=== PATIENT | female | born 1975 | race Caucasian/White ===

== ENCOUNTER → 2018-08-04 13:45 | Outpatient (CLI) | payer OTHER, SELFPAY ==
--- NOTE | 2018-08-04 | DI.MRI.S_ITS ---
PROCEDURE: MR KNEE LT WO CON INDICATIONS: KNEE PAIN - left TECHNIQUE: Noncontrast sagittal PD fast spin echo and T2 fast spin echo with fat saturation, sagittal 3-D FLASH with fat saturation; coronal T1 spin echo and PD fast spin echo with fat saturation, and axial PD fast spin echo with fat saturation through the knee. COMPARISON: [facility], MR, KNEE WITHOUT CONTRAST, 03/21/2016, 15:10. FINDINGS: Image quality: Excellent. Menisci: The medial and lateral menisci demonstrate normal morphology and internal signal. The meniscal root ligaments appear intact. Cruciate ligaments: The anterior and posterior cruciate ligaments appear intact. Medial structures: The medial collateral ligament appears intact. The posterior oblique ligament, semimembranosus tendon insertions, oblique popliteal ligament, and meniscocapsular junction appear intact. Visualized portions of the pes anserinus tendons appear normal. No abnormal bursal fluid. Lateral structures: The lateral collateral ligament, long and short heads of the biceps femoris tendon appear intact. The popliteus tendon appears normal; the popliteofibular ligament appears intact. The posterosuperior and anteroinferior popliteomeniscal fascicles appear intact. The arcuate and fabellofibular ligaments appear intact, on either side of the lateral inferior geniculate artery. Iliotibial band appears normal. Anterior structures: The quadriceps and patellar tendons appear intact. Patellar alignment is normal. No femoral trochlear dysplasia or ventral trochlear prominence. No edema in the infrapatellar fat pad. Bones and cartilage: There is [id number] tricompartmental osteoarthritis multiple prominent in patellofemoral compartment with joint space narrowing, thinning of articulating cartilage and marginal osteophyte formation. Chondromalacia patella involving the lateral facet of patella cartilage is seen with suggestion of small osteochondral lesions involving lateral aspect of posterior patella. No fracture or dislocation. Joint space: There is small amount of joint fluid. No gross loose body. No Duron's cyst. Normal appearing synovial plicae are incidentally noted. IMPRESSION: 1. Mild to moderate tricompartmental osteoarthritis more prominently involving lateral portion of the patellofemoral compartment as described above. Small amount of joint fluid. No gross loose body. No fracture or dislocation. 2. No evidence of focal meniscal tear. 3. Cruciate ligaments are intact. Dictated by: Dirk Mc M.D. on 08/04/2018 at 16:30 Approved by: Dirk Mc M.D. on 08/04/2018 at 16:35
--- NOTE | 2018-08-04 | DI.MRI.S_ITS ---
PROCEDURE: MR CERVICAL SPINE WO CON INDICATIONS: BACK PAIN TECHNIQUE: Noncontrast sagittal T1 spin echo and T2 fast spin echo, sagittal STIR, foraminal oblique sagittal T2 fast spin echo, and axial gradient echo or T2 fast spin echo through the cervical spine. COMPARISON: None. FINDINGS: Image quality: Diagnostic, with note made of motion artifact. Alignment and Curvature: There is straightening of the normal cervical lordosis. No focal AP alignment abnormality is seen. Bone Marrow: Marrow demonstrates normal overall signal. Spinal Cord: Visualized spinal cord has normal size and signal. No cerebellar tonsillar herniation. Paraspinous Soft Tissues: No paravertebral masses. Prevertebral soft tissues are normal in thickness. C2-C3: Normal appearance. C3-C4: Normal appearance. C4-C5: The disc height is well-preserved. Loss of disc signal is seen at this level. A mild degree of generalized disc osteophyte complex is seen. There is mild right-sided and no left-sided neural foraminal narrowing seen. No significant central canal narrowing is seen. C5-C6: Mild loss of disc height is seen. Loss of disc signal is seen. Mild to moderate disc osteophyte complex is seen. There is mild right-sided and mild to moderate left-sided neural foraminal narrowing seen. Moderate central canal narrowing is seen, with minimal associated mass effect upon the ventral spinal cord. C6-C7: Moderate loss of disc height is seen. Loss of disc signal is seen. Moderate to prominent disc osteophyte complex is seen. There is a superimposed central disc osteophyte protrusion. Mild facet joint hypertrophy is seen. There is moderate to severe bilateral neural foraminal narrowing seen, left greater than right. Moderate to severe central canal narrowing is seen, with associated mass effect upon the ventral spinal cord. C7-T1: Normal appearance. IMPRESSION: Lower cervical spine degenerative changes are seen, which are most prominent at the C6-C7 level. Dictated by: Donny Haynes M.D. on 08/04/2018 at 14:37 Approved by: Donny Haynes M.D. on 08/04/2018 at 14:42
== END ==
PROVIDERS: Visit Provider Hospitalist
DX: M47.22 Other spondylosis with radiculopathy, cervical region (principal); M48.02 Spinal stenosis, cervical region; M25.562 Pain in left knee; M17.12 Unilateral primary osteoarthritis, left knee
CPT/HCPCS: 72141; 73721

== ENCOUNTER 2019-01-06 09:58 | Inpatient (IN) | payer OTHER, SELFPAY ==
[2019-01-02 09:48] VITALS: BMI 33.6
[2019-01-06] VITALS (15 sets, daily range): BP systolic 99–129; BP diastolic 51–81; PULSE 81–110; RESP 10–18; TEMP 36.6–37.3; O2SAT 91–99; BMI 33.6
--- NOTE | 2019-01-06 | DI.RAD.S_ITS ---
PROCEDURE: XR CERVICAL SPINE 2V OR 3V INDICATIONS: C5-6 C6-7 ACDF TECHNIQUE: 2 view(s) of the cervical spine were acquired. COMPARISON: [facility], RG, SPINE CERVICAL MIN 4VW, 07/21/2018, 14:29. FINDINGS: Bones: Postsurgical changes compatible with C5-C6 and C6-C7 cervical disc prosthesis placement. There is normal alignment and curvature of the visualized cervical vertebral bodies. Soft tissues: No prevertebral soft tissue swelling. IMPRESSION: Expected postsurgical change for C5-C6 and C6-C7 cervical disc prosthesis placement. Dictated by: Milagros Downey MD, PhD on 01/06/2019 at 15:14 Approved by: Milagros Downey MD, PhD on 01/06/2019 at 15:16
[2019-01-06] MEDS: LACTATED RINGERS 1,000 ML 42 ML IV ×2 (10:36→13:56)
--- NOTE | 2019-01-06 11:47 | PM.PREOP ---
Pre-operative Note Interval Note History & Physical reviewed/Exam performed by Physician: Yes Changes to H&P: No
--- NOTE | 2019-01-06 12:05 | PM.OP.1 ---
Operative Date/Time/Diagnoses Date of procedure: 01/06/19 Time of procedure: 13:54 Pre-op diagnosis: Cervical disc herniation with radiculopathy Post-op diagnosis: same Procedure & Clinicians Procedure: C5-6, C6-7 anterior diskectomy and artificial disc replacement Use of microscope Same procedure as scheduled: Yes Indications: [age] year old female with intractable pain from cervical disc herniation. They had failed conservative management and requested operative intervention. Risks and benefits of surgery were discussed and appropriate consents were obtained. Surgeon: Derrek Andino Library Circulation Technician: Vilma Workman Click Yes if Unassisted: Yes Operative Notes Findings: None Closure Type: primary Specimen(s): none sent Prosthetic devices, grafts, tissues, transplants, or devices: Antwan Mobi-C Estimated Blood Loss (mL): 5 Blood products transfused: none Procedure in detail: Patient was brought to the operating room and intubated on the table. A time-out was performed. Preoperative antibiotics were given. The neck was prepped and draped in the standard sterile fashion. Using a skin fold, we made a 3 cm oblique incision on the left side. We used Bovie to go through the platysma and then did a standard anterolateral blunt dissection down to the precervical fascia. Fascia was nicked and elevated up. A marker was placed and x-ray was taken for localization. We then subperiosteally elevated up the longus colli muscles. Self-retaining retractors were placed. [place] pins were placed under x-ray guidance to be parallel to the endplates. We then brought in the microscope. A scalpel used to perform an annulotomy. We then used a combination of pituitaries and curettes and Kerrison to perform a complete anterior diskectomy at C6-7. We took down the PLL and used Kerrison to remove any posterior disc material and osteophytes. At the end we could from the nerve hook cephalad caudally and out the foramen and everything was opened. We distracted open with the parallel recycler forklift driver truck driver. We then used the horseshoes for sizing. We then used the trials. We then inserted a 15 x 15 x 5 mm size Mobi-C artificial disc replacement under fluoroscopic guidance for positioning. The traction was released and x-ray was checked again. The self-retaining retractors and [place] pins were removed. We then went up to C5-6 and adjusted the [place] pins and retractors. Again a complete diskectomy was performed at this level with pituitaries and Kerrisons. We took down the PLL and removed posterior disc material. We trialed and placed another 15 x 15 x 5 mm Mobi-C artificial disc replacement at C5-6 under fluoroscopic guidance. We compressed the pins and removed the retractors and final x-rays were taken. The wound was irrigated. There was no bleeding. The carotid was beating nicely. The platysma was closed. The superficial was closed. The skin was closed. A sterile dressing was placed. They were then extubated and brought to recovery room with no complications. Complications: none Condition: stable Disposition: PACU Plan for aftercare: Overnight admission. Discharge tomorrow
--- NOTE | 2019-01-06 12:08 | P.OP_ITS ---
Operative Date/Time/Diagnoses Date of procedure: 01/06/19 Time of procedure: 13:54 Pre-op diagnosis: Cervical disc herniation with radiculopathy Post-op diagnosis: same Procedure & Clinicians Procedure: C5-6, C6-7 anterior diskectomy and artificial disc replacement Use of microscope Same procedure as scheduled: Yes Indications: [age] year old female with intractable pain from cervical disc herniation. They had failed conservative management and requested operative intervention. Risks and benefits of surgery were discussed and appropriate consents were obtained. Surgeon: Derrek Andino [employer] Teacher: Vilma Workman Click Yes if Unassisted: Yes Operative Notes Findings: None Closure Type: primary Specimen(s): none sent Prosthetic devices, grafts, tissues, transplants, or devices: Antwan Mobi-C Estimated Blood Loss (mL): 5 Blood products transfused: none Procedure in detail: Patient was brought to the operating room and intubated on the table. A time-out was performed. Preoperative antibiotics were given. The neck was prepped and draped in the standard sterile fashion. Using a skin fold, we made a 3 cm oblique incision on the left side. We used Bovie to go through the platysma and then did a standard anterolateral blunt dissection down to the precervical fascia. Fascia was nicked and elevated up. A marker was placed and x-ray was taken for localization. We then subperiosteally elevated up the longus colli muscles. Self-retaining retractors were placed. [place] pins were placed under x-ray guidance to be parallel to the endplates. We then brought in the microscope. A scalpel used to perform an annulotomy. We then used a combination of pituitaries and curettes and Kerrison to perform a complete anterior diskectomy at C6-7. We took down the PLL and used Kerrison to remove any posterior disc material and osteophytes. At the end we could from the nerve hook cephalad caudally and out the foramen and everything was opened. We distracted open with the parallel coffee plantation worker. We then used the horseshoes for sizing. We then used the trials. We then inserted a 15 x 15 x 5 mm size Mobi-C artificial disc replacement under fluoroscopic guidance for positioning. The traction was released and x-ray was checked again. The self-retaining retractors and [place] pins were removed. We then went up to C5-6 and adjusted the [place] pins and retractors. Again a complete diskectomy was performed at this level with pituitaries and Kerrisons. We took down the PLL and removed posterior disc material. We trialed and placed another 15 x 15 x 5 mm Mobi-C artificial disc replacement at C5-6 under fluoroscopic guidance. We compressed the pins and removed the retractors and final x-rays were taken. The wound was irrigated. There was no bleeding. The carotid was beating nicely. The platysma was closed. The superficial was closed. The skin was closed. A sterile dressing was placed. They were then extubated and brought to recovery room with no complications. Complications: none Condition: stable Disposition: PACU Plan for aftercare: Overnight admission. Discharge tomorrow
[2019-01-06] MEDS: CEFAZOLIN 2 GM/100 ML FROZ.PIGGY IV ×2 (12:30→19:45)
--- NOTE | 2019-01-06 12:53 | SUR.OPER ---
Supine on padded OR bed, head on donut with shoulder roll, arm padded and tucked at side, legs uncrossed, safety belt at thigh, tape over blanket over lower legs .
[2019-01-06] MEDS: THROMBIN (RECOMBINANT) 5,000 UNIT VIAL 5000 UNIT TOP (12:58)
[2019-01-06] MEDS: SODIUM CHLORIDE 0.9% 1,000 ML, GENTAMICIN 80 MG IRR (12:59)
[2019-01-06] MEDS: BUPIVACAINE 0.25% W/ EPI 30 ML VIAL 60 ML INJ (13:00)
[2019-01-06] MEDS: ACETAMINOPHEN IV 1,000 MG/100 ML VIAL 400 MG IV (13:13)
[2019-01-06] MEDS: fentaNYL 100 MCG/2 ML INJ 50 MCG IV ×2 (14:19→14:34)
[2019-01-06] MEDS: LORazepam 2 MG/ML SYRINGE 0.25 MG IV ×2 (14:31→15:01)
--- NOTE | 2019-01-06 15:32 | SUR.PHASEI ---
post op note: patient vss stable, Tolerating po without nausea, dressing CDI, continue back burning to mid back. Stable for transfer to IP room [address]
[2019-01-06] MEDS: LACTATED RINGERS 1,000 ML 125 ML IV (15:45)
[2019-01-06] MEDS: HYDROCODONE/ACET 5/325 TABLET 2 TAB PO ×2 (18:22→22:01)
--- NOTE | 2019-01-06 19:09 | PC.NURSE ---
Addendum entered by Pilar Jaimes R.N. 01/06/19 23:15: Pt resting at intervals this evening. Med at 2200 for discomfort w/ fair relief. Dsg to neck CDI, soft collar in place. IVF continue as per orders. Stable post op course. Call light w/in reach, pt calls appropriately for need. Continue w/plan of care. Original Note: Arrived from PACU @ 1545 Pt resting at intervals Dsg to anterior neck CDI. Soft collar in place. IV LR infusing into the RFA @ 125cc/hr via pump w/o incidence. Med at 1820 w/ [place] for discomfort w/fair relief. Call light w/in reach, bed alarm on for pt safety.
[2019-01-06] MEDS: DOCUSATE 100 MG CAPSULE PO (22:02)
[2019-01-06] MEDS: SENNOSIDES 8.6 MG TABLET 17.2 MG PO (22:03)
[2019-01-06] MEDS: GABAPENTIN 300 MG CAPSULE PO (22:03)
[2019-01-07 03:30] VITALS: BP 97/59; PULSE 69; RESP 16; TEMP 36.4; O2SAT 99
[2019-01-07] MEDS: CEFAZOLIN 2 GM/100 ML FROZ.PIGGY IV (04:01)
[2019-01-07] MEDS: HYDROCODONE/ACET 5/325 TABLET 1 TAB PO ×2 (04:05→04:56)
[2019-01-07 07:30] VITALS: BP 98/60; PULSE 76; RESP 16; TEMP 36.4; O2SAT 100
[2019-01-07] MEDS: DOCUSATE 100 MG CAPSULE PO (07:48)
[2019-01-07] MEDS: CITALOPRAM 20 MG TABLET 40 MG PO (07:48)
[2019-01-07] MEDS: NAPROXEN 250 MG TABLET 500 MG PO (07:48)
--- NOTE | 2019-01-07 07:56 | PM.PNPO.1 ---
Subjective Date Patient Seen: 01/07/19 Time Patient Seen: 07:56 Interval history: She is doing very well. finally feels her hands again. a fair amount of pain at the base of the neck and over to the shoulders. Uncomfortable but swallowing well Exam Vital Signs (past 8 hours): - 01/07/19 03:30 Temperature 97.6 F Pulse Rate 69 Respiratory Rate 16 Blood Pressure 97/59 L Pulse Oximetry 99 Oxygen Delivery Method Nasal Cannula Oxygen Flow Rate 0 Const Orientation: alert and oriented x3 Back/Spine/Pelvis Other: CDI. 5/5 motor both upper extremities Assessment & Plan Post-op Postoperative Procedures Operation Date: 01/06/19 12:15 Actual Procedures Side Surgeon p C5-6, C6-7 Anterior discectomy & Artificial disc replacement Derrek Andino MD She is doing very well. Mobilize this morning with physical therapy and plan to discharge home. Quality VTE Deep Vein Thrombosis/Pulmonary Embolism Present on Admission: No
[2019-01-07] MEDS: HYDROCODONE/ACET 5/325 TABLET 2 TAB PO (09:36)
--- NOTE | 2019-01-07 09:49 | PC.NURSE ---
Patient alert and oriented x4 to baseline. appropriate affect. Dresssing to left side of neck c,d,i. Trace swelling noted post op. Trachea midline. No s/sx of infection noted to site. A-febrile. Tingling noted to bilateral arms/hands which is improvement prior to surgery. Normal ROM to upper extremeties, limited to neck with soft collar in place. Contintent of bowel and bladder.BT+x4. LS clear. Denies dizziness. Pedal pulses +2 bilat. Pain 5/10 prior to naproxen-partially effective at 0800, prn norco 2 tabs given at 0940 for 5/10 pain as well in neck and shoulder. ROM at baseline for lower extremeties. vitals stable. Plan to discharge patient today.
--- NOTE | 2019-01-07 10:44 | OT.IP.EVAL ---
Current Diagnoses Other cervical disc displacement, unspecified cervical region (01/06/19) Surgery Performed Operation Date: 01/06/19 12:15 Actual Procedures p C5-6, C6-7 Anterior discectomy & Artificial disc replacement - Derrek Andino MD Past Medical History (Last Updated 01/02/19 @ 10:10 by Wanda Weathers RN) Adjustment disorder (Acute) Bronchitis (Acute) Easy bruisability (Acute) Numbness and tingling of both upper extremities (Acute) Raynauds phenomenon (Acute) Surgical History (Last Updated 01/02/19 @ 10:12 by Wanda Weathers RN) History of delivery (Acute) History of photorefractive keratectomy (PRK) (Acute) History of surgery on arm (Acute) Hx of arthroscopy of left knee (Acute) Hx of dilation and curettage (Acute) Hx of right breast biopsy (Acute) Hx of tubal ligation (Acute) S/P LEEP (loop electrosurgical excision procedure) (Acute) Occupational Therapy Inpatient Evaluation/Re-Eval M1 PT/OT-IP Prior Functional Status Start: 01/06/19 16:53 Freq: NEEDED Status: Active Protocol: Document 01/07/19 08:40 HH (Rec: 01/07/19 10:51 [id number]) Medical Review Prior Functional Status Medical History Reviewed Yes Diet/Fluid Consistency Regular Communication No deficits noted. Able to make needs known Mobility and Gait Pt is an independent ambulator at home and community without using AD. 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 Activities of Daily Living and IADL's independent with all ADLs and IADLs. Pt also takes care of her 2 children. 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 Social History Household Members spouse children Living Arrangements House Number of Floors (Floors) Two Floors Number of Stairs To Enter/Railing? 1 CONNER 12-14 steps to 2nd floor with L rail going up. Home Environment Standard Height Toilet Tub/Shower Home Equipment Front Wheel Walker Straight Cane Employment Status Self-Employed Additional Social History Comment Pt lives with her and 2 children in [facility]. 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 M2 OT-IP Current Condition Start: 01/07/19 17:51 Freq: Status: Active Protocol: Document 01/07/19 10:44 PJM (Rec: 01/07/19 18:03 PJM [id number]) Occupational Therapy Current Condition Current Condition Evaluation Date 01/07/19 Treatment Diagnosis decreased self care s/p C5-7 anterior diskectomy w/ artificial discs placed Diagnosis Onset Date 01/06/19 Post Operative Precautions Cervical Spine Precautions Soft Collar for Comfort Soft Collar at all Times Rigid Collar No Heavy Lifting Log Roll M3 OT- IP Subjective and Pain Start: 01/07/19 17:51 Freq: Status: Active Protocol: Document 01/07/19 10:44 PJM (Rec: 01/07/19 18:03 PJM [id number]) OT- Subjective Occupational Therapy Visit Type Type Initial Evaluation Visit Start Time 10:18 Visit Stop Time 10:44 Total Visit Minutes 26 Notes here for education this session. Occupational Therapy Visit Comments Patient Comments I plan to take 3 weeks off work. I have a high-low desk so I can change positions at work. Patient/Caregiver Goals to be able to work out at the gym OT Pain Assessment Pain When Pain Assessed After Treatment Pain Present Pain Present Pain Reported Location neck and shoulder Intensity 3 Scale Used Numeric (1 - 10) Description Aching Acute Management Techniques Distraction Timing of Activity with Medications M4 OT- IP ADL's Start: 01/07/19 17:51 Freq: Status: Active Protocol: Document 01/07/19 10:44 PJM (Rec: 01/07/19 18:03 PJM [id number]) OT [id number] General Evaluation Self-Feeding Ability Independent Comments OT Self-Feeding Comments pt eating slowly and carefully , general diet, educated pt re : soft food choices OT ADL-Grooming General Evaluation Grooming Ability Independent Comments OT Grooming Comments standing at sink after education re: body mechanics OT ADL-Oral Care General Eval Oral Care Ability Independent Comments Oral Care Comments standing at sink after education re: body mechanics OT ADL-Dressing General Eval Upper Body Dressing Ability Independent Comments OT Dressing Comments after education re: body mechanics OT ADL-Toileting General Evaluation Toileting Ability Independent Comments OT Toileting Comments after education re: body mechanics OT ADL-Bathing General Evaluation Bathing Ability Minimal Assistance Comments OT Bathing Comments will assist with hair washing; provided education re: methods to keep incision dry M5 OT- IP IADL's Start: 01/07/19 17:51 Freq: Status: Active Protocol: Document 01/07/19 10:44 PJM (Rec: 01/07/19 18:03 [facility] [id number]) OT-Instrumental Activities of Daily Living Deficits IADL Deficits Identified Deficits Home Safety Awareness Awareness of Need for Assistance at Home Good Awareness Ability to Problem Solve Emergency Able to Problem Solve Situations Medication Management Medication Management No Deficits Identified Money Management Money Management No Deficits Identified Meal Preparation Meal Preparation Caregiver Provides Assist Meal Preparation Comments /family to assist until pt able Tenter Frame Back Tender Tenter Frame Back Tender Caregiver Provides Assist Tenter Frame Back Tender Comments /family to assist until pt able Driving Driving Caregiver Provides Assist Driving Comments to assist until pt able M6 OT- IP Functional Cognition Start: 01/07/19 17:51 Freq: Status: Active Protocol: Document 01/07/19 10:44 PJM (Rec: 01/07/19 18:03 [facility] [id number]) Cognitive Factors Limiting Selfcare Function Cognitive Ability Level of Alertness Alert Patient Orientation Name Age Birthday Month Date Year Day of Week Place Situation Attention Span Ability Capable of Focused Attention Capable of Sustained Attention Ability to Follow Commands Able to Follow Multi-Step Commands Memory Description No Deficits Noted Safety Awareness No Deficits Noted Problem Solving Ability No deficits Noted Executive Function Ability No Deficits Noted Cognitive Comments Cognitive Assessment Comments Pt verbalizes and demonstrates understanding of all education. OT- Vision and Hearing OT- Hearing Assessment OT- Hearing Assessment WFL OT- Vision Assessment Visual Acuity WFL M7 OT- IP Mobility and Balance Start: 01/07/19 18:04 Freq: Status: Active Protocol: Document 01/07/19 10:44 PJM (Rec: 01/07/19 18:03 [facility] [id number]) OT- Bed Mobility Assessment Rolling Type of Rolling Log Rolling Level of Assistance Independent Supine to Sit Supine to Sit Assist Independent Scooting Scooting to Edge of Bed Independent OT-Transfer Assessment Sit to and From Stand Sit to and from Stand Independent Transfers Transfer Ability Independent Technique Transfer Destination Bed Car Chair Transfer Technique Stand Step Pivot Devices Transfer Assistive Devices None Comments Mobility Comments no loss of balance noted OT- Gait Assessment Gait Gait Assistance Required: Independent Distance (Feet) 20 Assistive Devices Assistive Device None Comments Gait Ability Comments pt up in room ad malka OT- Balance Assessment Sitting Balance and Reactions Static Sitting Balance Ability Good Dynamic Sitting Balance Ability Good Standing Balance and Reactions Static Standing Balance Ability Good Dynamic Standing Balance Ability Good M8 OT- IP Objective Assessments Start: 01/07/19 18:04 Freq: Status: Active Protocol: Document 01/07/19 10:44 PJM (Rec: 01/07/19 18:03 [facility] [id number]) OT Gross Range of Motion Upper Extremity Range of Motion Assessment Within Functional Limits ROM Impairments end range NT in shoulders due to recent C spine fusion OT Strength Upper Extremity Strength Assessment Within Functional Limits Hand Photo Mask Cleaner Strength Hand Dominance Right OT- Coordination Assessment Comments Coordination Comments BUE WFL OT-Muscle Tone Assessment Muscle Tone WNL Yes OT Sensation Assessment Comments Summary Comments Pt reports improved sensation in B hand since surgery with decrease in numbness/tingling Edema Edema Absent M9 OT- IP Assessment and Plan Start: 01/07/19 18:04 Freq: Status: Active Protocol: Document 01/07/19 10:44 PJM (Rec: 01/07/19 18:03 PJ [id number]) OT Summary Assessment and Plan Potential Rehabilitation Potential Excellent Analytic Complexity at Evaluation Low Summary Assessment Summary Low complexity OT assessment and all education completed with pt/ today re: C- spine precautions, body mechanics and adapted ADLS. Pt / verbalize and demonstrate understanding. Pt plans to d/c home today with supportive and 2 teenage sons who can assist PRN. No further OT services needed. Frequency of Treatment Frequency Of Treatment Discharge Discharge Recommendations OT Discharge Recommendations Home with Assistance Home Equipment Needs none
--- NOTE | 2019-01-07 10:51 | PT.IIE ---
Current Diagnoses Other cervical disc displacement, unspecified cervical region (01/06/19) Surgery Performed Operation Date: 01/06/19 12:15 Actual Procedures p C5-6, C6-7 Anterior discectomy & Artificial disc replacement - Derrek Andino MD Surgical History (Last Updated 01/02/19 @ 10:12 by Wanda Weathers RN) History of delivery (Acute) History of photorefractive keratectomy (PRK) (Acute) History of surgery on arm (Acute) Hx of arthroscopy of left knee (Acute) Hx of dilation and curettage (Acute) Hx of right breast biopsy (Acute) Hx of tubal ligation (Acute) S/P LEEP (loop electrosurgical excision procedure) (Acute) Medical History (Last Updated 01/02/19 @ 10:10 by Wanda Weathers RN) Adjustment disorder (Acute) Bronchitis (Acute) Easy bruisability (Acute) Numbness and tingling of both upper extremities (Acute) Raynauds phenomenon (Acute) Physical Therapy Inpatient Evaluation/Re-Eval M1 PT/OT-IP Prior Functional Status Start: 01/06/19 16:53 Freq: NEEDED Status: Active Protocol: Document 01/07/19 08:40 HH (Rec: 01/07/19 10:51 [email or web address]) Medical Review Prior Functional Status Medical History Reviewed Yes Diet/Fluid Consistency Regular Communication No deficits noted. Able to make needs known Mobility and Gait Pt is an independent ambulator at home and community without using AD. 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 Activities of Daily Living and IADL's independent with all ADLs and IADLs. Pt also takes care of her 2 children. 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 Social History Household Members spouse children Living Arrangements House Number of Floors (Floors) Two Floors Number of Stairs To Enter/Railing? 1 CONNER 12-14 steps to 2nd floor with L rail going up. Home Environment Standard Height Toilet Tub/Shower Home Equipment Front Wheel Walker Straight Cane Employment Status Self-Employed Additional Social History Comment Pt lives with her and 2 children in [facility]. 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 M2 PT-IP Current Condition Start: 01/06/19 16:53 Freq: NEEDED Status: Active Protocol: Document 01/07/19 08:40 (Rec: 01/07/19 10:51 [email or web address]) Physical Therapy Current Condition Current Condition Evaluation Date 01/07/19 Treatment Diagnosis C5-6, C6-7 ant disc replacement, weakness in UEs Onset Date 01/06/19 Precautions Cervical Spine Precautions Soft Collar for Comfort Rigid Collar No Heavy Lifting Log Roll Weight Bearing Status Weight Bearing Status Weight Bear as Tolerated M3 PT-IP Subjective Start: 01/06/19 16:53 Freq: NEEDED Status: Active Protocol: Document 01/07/19 08:40 (Rec: 01/07/19 10:51 [email or web address]) Subjective Physical Therapy Visit Type Type Initial Evaluation Visit Start Time 08:40 Visit Stop Time 09:00 Total Visit Minutes 20 Notes Pt has been up to bathroom for toileting independently in her room without AD. 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 Patient Goals To return home with her family . Therapy Pain Assessment Pain When Pain Assessed During Mobility Pain Present Pain Present Pain Reported Location neck and shoulder Intensity 3 Scale Used Numeric (1 - 10) Description Aching Dull Pain Management Techniques Timing of Activity with Medications M4 PT-IP Mobility and Gait Start: 01/06/19 16:53 Freq: NEEDED Status: Active Protocol: Document 01/07/19 08:40 (Rec: 01/07/19 10:51 [email or web address]) PT-Bed Mobility Assessment Supine to Sit Supine to Sit Independent Sit to Supine Sit to Supine Independent Scooting Scooting to Edge of Bed Independent Scooting Up and Down in Bed Independent PT-Transfer Assessment Sit to and From Stand Sit to and from Stand Independent Equipment Transfer Assistive Device Bed Rail Orthotic/Prosthetic Devices or Brace: No Transfers Transfer Destination Bed Chair Transfer Technique Stand Step Pivot Transfer Ability Level of Assist Independent Comments Mobility Comments BP maintain at 110s/60s before and after session. Pt used supine to long sit and pivot to R EOB independently. Pt did multiple transfers bed <>chair without AD and very steady. Denies acute distress / discomfort. Gait Assessment Gait Gait Assistance Required: Independent Distance (Feet) 500 Able to Maintain Weight Bearing Status Yes During Gait Assistive Devices Assistive Device None Orthotic/Prosthetic Devices or Brace: No Gait Deviations General Gait Pattern Within Normal Limits Factors Limiting Gait Function Factors Limiting Gait Function Pain Comments Gait Comments Pt amb from her room to end of the hallway and returned back to her room without AD. Pt was very steady and even step length. Pt states I am at my baseline. Stair Climbing Assessment Evaluation Level of Assist On Stairs Independent Devices Stair Climbing Assistive Devices None Left Railing Technique/Endurance Stair Climbing Direction Ascend and Descend Stair Climbing Technique Step Over Step Number of Steps Climbed 3 Query Text: Stair Climbing Set # Repetitions (reps) 4 PT-Balance Assessment Sitting Balance and Reactions Static Sitting Balance Ability Normal Dynamic Sitting Balance Ability Normal Standing Balance and Reactions Static Standing Balance Ability Normal Dynamic Standing Balance Ability Normal Device Used none M5 PT-IP Objective Assessments Start: 01/06/19 16:53 Freq: NEEDED Status: Active Protocol: Document 01/07/19 08:40 (Rec: 01/07/19 10:51 [email or web address]) Orientation Orientation/Cognition Level of Alertness Alert Orientation Name Age Birthday Month Date Year Day of Week Place Situation Language Function Ability No Deficits Noted Safety Awareness Understands Safety Issues Memory Description No Deficits Noted Gross Range of Motion Upper Extremity ROM Assessment Within Functional Limits Lower Extremity ROM Assessment Within Functional Limits Strength Upper Extremity Strength Assessment Within Functional Limits Lower Extremity Strength Assessment Within Functional Limits Coordination Assessment Gross Coordination Gross Coordination WNL Assessment Finger to Nose Test Normal Performance Pronation/Supination Test Normal Performance Sensation Assessment Sensation Gross Sensation WNL Light Touch Intact Proprioception (Position) Intact Muscle Tone Muscle Tone WNL Yes M6 PT-IP Treatment Start: 01/06/19 16:53 Freq: NEEDED Status: Active Protocol: Document 01/07/19 08:40 (Rec: 01/07/19 10:51 [email or web address]) Physical Therapy Treatment Education Education Provided Precautions Weight Bearing Status Post-Op Packet Safety M7 PT-IP Assessment and Plan Start: 01/06/19 16:53 Freq: NEEDED Status: Active Protocol: Document 01/07/19 08:40 (Rec: 01/07/19 10:51 [email or web address]) PT Summary Assessment and Plan Potential Rehabilitation Potential Excellent Status of Condition at Evaluation Stable Summary Impairments Pain Assessment Summary Pt is eval only and ready for discharge now since she reaches her baseline regarding mobility. Pt was able to transfers, amb and negotiate stairs without gait belt and AD independently and safely. Pt was very steady the whole time and there's no noticeable UE ROM/ strength loss besides pain. and states she is at baseline at this point. Pt also able to recall all precautions. she will be safe to d/c to home today with her family who will also able to assist as needed. Frequency of Treatment Frequency Of Treatment Discharge Recommendations To Nursing Amount of Assist Needed Independent Discharge Recommendations PT Discharge Recommendations Home with Assistance
== END 2019-01-07 11:45 | disposition home or self-care (01) | DRG 518 ==
PROVIDERS: Admitting Provider Orthopaedic Surgery; PCP Radiology Diagnostic Radiology; Visit Provider Orthopaedic Surgery
PROC: 0RR30JZ Replacement of Cervical Vertebral Disc with Synthetic Substitute, Open Approach (ICD-10-PCS; CPT 22856; principal; 2019-01-06 12:15)
DX: M50.022 Cervical disc disorder at C5-C6 level with myelopathy (principal); M50.122 Cervical disc disorder at C5-C6 level with radiculopathy; Z87.891 Personal history of nicotine dependence; M48.02 Spinal stenosis, cervical region
CPT/HCPCS: 72040; 76000; 97161; 97165; 97535; C1776; J0131; J0690; J1100; J2060; J2250; J2405; J2704; J3010